=== PATIENT | female | born 1965 | race Caucasian/White ===

== ENCOUNTER 2022-10-25 21:02 | Inpatient (IN) | payer BC ==
[~2022-10-25] VITALS: Ht 172.7 cm; Wt 170.0 kg
[2022-10-25] MEDS ORDERED: MORPHINE 2 MG/ML 1ML VIAL IV ONE ×2 (22:20→23:50)
[2022-10-25 22:45] LABS: BASO # 0.1 10^3/uL (0.0-0.2); BASO % 1.1 % (0.0-1.0); EOS % 0.3 % (0.0-3.0); HEMATOCRIT 36.3 % (36.0-47.0); HEMOGLOBIN 12.2 g/dl (12.0-15.5); LYMPH # 1.4 10^3/uL (1.5-5.0); LYMPH % 12.3 % (24.0-44.0); MEAN CORPUSCULAR HEMOGLOBIN 29.9 pg (27.0-33.0); MEAN CORPUSCULAR HGB CONC 33.6 g/dl (32.0-36.5); MONO # 0.7 10^3/uL (0.0-0.8); MONO % 5.9 % (2.0-8.0); NEUTROPHILS # 9.1 10^3/uL (1.5-8.5); PLATELET COUNT, AUTOMATED 226 10^3/uL (150-450); RED BLOOD COUNT 4.08 10^6/uL (4.00-5.40); WHITE BLOOD COUNT 11.3 10^3/uL (4.0-10.0)
[2022-10-25 22:56] LABS: INR 0.94; PROTHROMBIN TIME 12.8 SECONDS (12.5-14.5)
[2022-10-25 22:57] LABS: PARTIAL THROMBOPLASTIN TIME 22.1 SECONDS (24.8-34.2)
[2022-10-25 23:12] LABS: BLOOD UREA NITROGEN 17 MG/DL (9-23); CALCIUM LEVEL 9.5 MG/DL (8.5-10.1); CARBON DIOXIDE LEVEL 27 MMOL/L (20-31); CHLORIDE LEVEL 108 MMOL/L (98-107); CREATININE FOR GFR 0.78 MG/DL (0.55-1.30); GLOMERULAR FILTRATION RATE > 60.0 (>51); GLUCOSE, FASTING 101 MG/DL (60-100); POTASSIUM SERUM 3.8 MMOL/L (3.5-5.1); SODIUM LEVEL 143 MMOL/L (136-145)
[2022-10-25 23:17] LABS: RSV AMPLIFICATION NEGATIVE (NEGATIVE)
[2022-10-26] MEDS ORDERED: MORPHINE 2 MG/ML 1ML VIAL IV ONE (00:15)
[2022-10-26] MEDS ORDERED: LEXA1TAB PO (00:21)
[2022-10-26] MEDS ORDERED: LEVO75TA4 PO (00:21)
[2022-10-26] MEDS ORDERED: HOME MED LIST COMPLETE! XX SCH (00:25)
[2022-10-26 03:35] VITALS: BP 135/77; TEMP 97.6; O2SAT 93
[2022-10-26] MEDS: MORPHINE 2 MG/ML 1ML VIAL IV PRN ×3 (03:43→13:36)
[2022-10-26] MEDS: ACETAMINOPHEN TAB 650MG DOSE (2X325MG) PO PRN ×3 (03:43→12:04)
[2022-10-26] MEDS: IBUPROFEN 600MG TAB PO PRN ×2 (04:25→10:19)
[2022-10-26 04:30] VITALS: BP 122/79; TEMP 98.8; O2SAT 95
[2022-10-26] MEDS: LEVOTHYROXINE 75MCG TABLET (0.075MG) PO SCH (05:20)
[2022-10-26] MEDS: ESCITALOPRAM OXALATE 10 MG TAB (LEXAPRO) PO SCH (05:21)
[2022-10-26] MEDS ORDERED: HEPARIN SOD (PORCINE) 5000UNITS/ML 1ML VIAL/SYRINGE SC SCH (06:00)
[2022-10-26 08:19] VITALS: BP 107/62; TEMP 98.9; O2SAT 98
[2022-10-26] MEDS: LR 1,000 ML IV SCH ×3 (10:04→19:27)
[2022-10-26 10:59] LABS: TOTAL 25(OH) VITAMIN D 36.4 NG/ML (20.0-100.0)
[2022-10-26 12:00] VITALS: BP 113/72; TEMP 97.6; O2SAT 95
[2022-10-26 15:27] VITALS: BP 111/68; TEMP 97.5; O2SAT 96
[2022-10-26] MEDS ORDERED: ceFAZolin 2 GM/D5W 50 ML IV BAG As Ordered ONE (18:33)
[2022-10-26] MEDS ORDERED: METOCLOPRAMIDE INJ 10MG/2ML VIAL As Ordered ONE (18:52)
[2022-10-26] MEDS ORDERED: fentaNYL 250 MCG/5 ML INJECTION As Ordered ONE (18:52)
[2022-10-26] MEDS ORDERED: LIDOCAINE 2% 100MG/5ML SDV (FOR ANES.) As Ordered ONE (18:52)
[2022-10-26] MEDS ORDERED: MIDAZOLAM INJ 2MG/2ML VIAL As Ordered ONE (18:52)
[2022-10-26] MEDS ORDERED: propofoL 200 MG/20 ML VIAL As Ordered ONE (18:52)
[2022-10-26] MEDS ORDERED: ONDANSETRON 4MG 2ML VIAL As Ordered ONE (18:52)
[2022-10-26] MEDS ORDERED: ACETAMINOPHEN 1000MG 100ML IV BAG As Ordered ONE (18:52)
[2022-10-26] MEDS ORDERED: ROCURONIUM BROMIDE 50MG/5ML VIAL As Ordered ONE (18:52)
[2022-10-26] MEDS ORDERED: HYDROmorphone HCL 2MG/ML 1ML VIAL As Ordered ONE (18:52)
[2022-10-26] MEDS ORDERED: SUGAMMADEX SODIUM 500 MG/5 ML VIAL (BRIDION) As Ordered ONE (18:52)
[2022-10-26] MEDS ORDERED: ONDANSETRON 4MG 2ML VIAL IV PRN (20:25)
[2022-10-26] MEDS ORDERED: LR 1,000 ML IV SCH (20:25)
[2022-10-26] MEDS ORDERED: fentaNYL 100 MCG/2 ML INJECTION IV PRN (20:25)
[2022-10-26] MEDS: HYDROMORPHONE HCL 0.5 MG/ 0.5 ML SYRINGE IV PRN ×2 (21:16→21:22)
[2022-10-26] MEDS: oxyCODONE 5MG TAB PO PRN ×2 (21:16→21:44)
[2022-10-26 21:50] VITALS: BP 156/92; TEMP 96.8; O2SAT 88
[2022-10-27] VITALS (8 sets, daily range): BP systolic 93–160; BP diastolic 54–88; TEMP 96.8–99; O2SAT 91–95
[2022-10-27] MEDS: ACETAMINOPHEN TAB 650MG DOSE (2X325MG) PO PRN ×2 (01:52→08:40)
[2022-10-27] MEDS: MORPHINE 2 MG/ML 1ML VIAL IV PRN ×3 (02:30→19:39)
[2022-10-27 06:13] LABS: HEMATOCRIT 33.7 % (36.0-47.0); HEMOGLOBIN 10.9 g/dl (12.0-15.5); MEAN CORPUSCULAR HEMOGLOBIN 29.6 pg (27.0-33.0); MEAN CORPUSCULAR HGB CONC 32.3 g/dl (32.0-36.5); MEAN CORPUSCULAR VOLUME 91.6 fl (80.0-96.0); PLATELET COUNT, AUTOMATED 175 10^3/uL (150-450); RED BLOOD COUNT 3.68 10^6/uL (4.00-5.40); WHITE BLOOD COUNT 8.3 10^3/uL (4.0-10.0)
[2022-10-27] MEDS: ceFAZolin SOD 2 GM in IV 1 EA IV SCH ×2 (06:16→14:38)
[2022-10-27] MEDS: LEVOTHYROXINE 75MCG TABLET (0.075MG) PO SCH (06:16)
[2022-10-27] MEDS: IBUPROFEN 600MG TAB PO PRN ×2 (06:17→18:40)
[2022-10-27 06:37] LABS: BLOOD UREA NITROGEN 10 MG/DL (9-23); CALCIUM LEVEL 8.1 MG/DL (8.5-10.1); CARBON DIOXIDE LEVEL 26 MMOL/L (20-31); CHLORIDE LEVEL 107 MMOL/L (98-107); CREATININE FOR GFR 0.67 MG/DL (0.55-1.30); GLOMERULAR FILTRATION RATE > 60.0 (>51); GLUCOSE, FASTING 115 MG/DL (60-100); POTASSIUM SERUM 4.2 MMOL/L (3.5-5.1); SODIUM LEVEL 139 MMOL/L (136-145)
[2022-10-27] MEDS: ENOXAPARIN 40MG/0.4ML SYRINGE (J1650 PER 10MG) SC SCH (08:40)
[2022-10-27] MEDS: ESCITALOPRAM OXALATE 10 MG TAB (LEXAPRO) PO SCH (08:40)
[2022-10-27] MEDS: VITAMIN D 1,000 INTERNATIONAL UNITS TABLET PO SCH (11:53)
[2022-10-28] MEDS: MORPHINE 2 MG/ML 1ML VIAL IV PRN (01:55)
[2022-10-28] MEDS: IBUPROFEN 600MG TAB PO PRN ×2 (02:31→09:01)
[2022-10-28] MEDS: LEVOTHYROXINE 75MCG TABLET (0.075MG) PO SCH (06:08)
[2022-10-28 06:58] VITALS: BP 116/60; TEMP 96.6; O2SAT 96
[2022-10-28] MEDS: VITAMIN D 1,000 INTERNATIONAL UNITS TABLET PO SCH (09:01)
[2022-10-28] MEDS: ESCITALOPRAM OXALATE 10 MG TAB (LEXAPRO) PO SCH (09:01)
[2022-10-28] MEDS: ENOXAPARIN 40MG/0.4ML SYRINGE (J1650 PER 10MG) SC SCH (09:02)
[2022-10-28 10:00] VITALS: BP 128/74; TEMP 98.6; O2SAT 94
[2022-10-28] MEDS ORDERED: IBUP-1022 PO (10:00)
[2022-10-28] MEDS ORDERED: PEPC40TA12 PO (10:00)
[2022-10-28] MEDS ORDERED: ASPI81CH33 PO (10:00)
[2022-10-28] MEDS ORDERED: OXYC1TAB23 PO (10:07)
[2022-10-28] MEDS: ACETAMINOPHEN TAB 650MG DOSE (2X325MG) PO PRN ×2 (10:34→16:32)
[2022-10-28 14:00] VITALS: BP 131/95; TEMP 98.2; O2SAT 95
== END 2022-10-28 17:50 | disposition home health service (06) | DRG 313 ==
LOC: M ED 21:02 → M ED INP 10-26 02:09 → M PED 10-26 03:30 → M MS5PR 10-26 21:50
PROVIDERS: ADMIT Internal Medicine; ATTEND Internal Medicine
PROC: 0QSH04Z Reposition Left Tibia with Internal Fixation Device, Open Approach (ICD-10-PCS; principal; 2022-10-26 15:21)
PROC: 0PSJ04Z Reposition Left Radius with Internal Fixation Device, Open Approach (ICD-10-PCS; 2022-10-26 15:21)
DX: S52.572A Other intraarticular fracture of lower end of left radius, initial encounter for closed fracture (principal); Z68.43 Body mass index [BMI] 50.0-59.9, adult; S52.609A Unspecified fracture of lower end of unspecified ulna, initial encounter for closed fracture; E03.9 Hypothyroidism, unspecified; S82.142A Displaced bicondylar fracture of left tibia, initial encounter for closed fracture; E66.9 Obesity, unspecified; F41.9 Anxiety disorder, unspecified; E55.9 Vitamin D deficiency, unspecified; W11.XXXA Fall on and from ladder, initial encounter; Y92.833 Campsite as the place of occurrence of the external cause; Z79.899 Other long term (current) drug therapy

== ENCOUNTER → 2022-11-13 | Outpatient (CLI) | payer BC ==
[~2022-11-13] MED LIST: ASPI81CH33 PO; IBUP-1022 PO; LEVO75TA4 PO; LEXA1TAB PO; OXYC1TAB23 PO; PEPC40TA12 PO
== END ==
LOC: M SOG 10:06
PROVIDERS: ATTEND Orthopaedic Surgery
DX: S52.572D Other intraarticular fracture of lower end of left radius, subsequent encounter for closed fracture with routine healing (principal); S82.142D Displaced bicondylar fracture of left tibia, subsequent encounter for closed fracture with routine healing

== ENCOUNTER → 2023-01-22 | Outpatient (CLI) | payer BC | LOC: M SOG 07:59 | PROVIDERS: ATTEND Orthopaedic Surgery | DX: S52.572D Other intraarticular fracture of lower end of left radius, subsequent encounter for closed fracture with routine healing (principal); S82.142D Displaced bicondylar fracture of left tibia, subsequent encounter for closed fracture with routine healing; Y93.9 Activity, unspecified; Y92.9 Unspecified place or not applicable ==

== ENCOUNTER → 2023-04-28 | Outpatient (CLI) | payer BC | LOC: M SOG 08:02 | PROVIDERS: ATTEND Orthopaedic Surgery | DX: S52.572D Other intraarticular fracture of lower end of left radius, subsequent encounter for closed fracture with routine healing (principal); S82.142D Displaced bicondylar fracture of left tibia, subsequent encounter for closed fracture with routine healing; Y93.9 Activity, unspecified; Y92.9 Unspecified place or not applicable ==